=== PATIENT | male | born 1975 | race Caucasian/White ===

== ENCOUNTER 2017-10-18 06:33 | Emergency (ER) | payer MEDICAID ==
[~2017-10-18] VITALS: Ht 180.3 cm; Wt 82.6 kg
[2017-10-18 06:44] VITALS: BP 178/113
[2017-10-18] MEDS ORDERED: DIPH,PERTUSS(ACELL),TET VAC/PF 0.5 ML IM-VACC ONE ×3 (07:25→07:42)
[2017-10-18] MEDS ORDERED: KETOROLAC 30 MG/1 ML ONE (07:25)
[2017-10-18] MEDS ORDERED: LIDOCAINE-MPF 2%, 2ML ONE (07:25)
[2017-10-18] MEDS ORDERED: KETOROLAC 30 MG/1 ML IM ONE (07:30)
== END 2017-10-18 08:34 | disposition left against medical advice (07) ==
LOC: ED 08:10
DX: S39.012A Strain of muscle, fascia and tendon of lower back, initial encounter (principal); G89.11 Acute pain due to trauma; S60.811A Abrasion of right wrist, initial encounter; S90.812A Abrasion, left foot, initial encounter; Y04.2XXA Assault by strike against or bumped into by another person, initial encounter; Y93.89 Activity, other specified; Y92.410 Unspecified street and highway as the place of occurrence of the external cause; Y99.9 Unspecified external cause status
CPT/HCPCS: 72110; 90471; 90715; 96372; 99284; J1885